=== PATIENT | male | born 1950 | race Caucasian/White ===

== ENCOUNTER 2018-02-04 15:03 | Emergency (ER) | payer OTHER ==
[~2018-02-04] VITALS: Ht 188 cm; Wt 86.6 kg
[~2018-02-04 15:03] MED LIST: ACYCLOVIR 400400 MG PO; ALLOPURINOL 30300 M2 PO; AMBIEN 5 MG TABL5 M1 PO; ASPIR 8181 MG PO; ATIVAN1 M1 PO; CELEXA20 MG PO; CENTRUM SILVER1 EAC4 PO; CHEMOTHERAPY; FISH OIL 1,2001 EAC3 PO; GLIPIZIDE ER10 MG PO; GLUCOPHAGE1000 MG PO; GLUCOSAMINE HC500 MG PO; HUMALOG MI100 UNIT/6 SQ; IMODIUM MULTI-1 EACH PO; INVOKANA100 MG PO; KEPPRA 500 MG500 M1 PO; LEVEMIR SUBQ; MAGOX 400400 MG PO; METFORMIN HCL500 MG PO; MIDODRINE HCL 55 M1 PO; MIRALAX17 GM PO; NORCO 5-325 TA1 EACH; NORCO 5-325 TA1 EACH PO; NOVOLOG MI100 UNIT/2 SUBQ; NOVOLOG100 UNIT/1 SQ; NOVOLOG100 UNIT/1 SUBQ; OMEPRAZOLE40 MG PO; ONDANSETRON HCL4 M2 PO; OSTERA TABLET1 EAC1 PO; OXYCODONE HCL 55 MG PO; OXYCONTIN10 M1 PO; PANTOPRAZOLE SO40 M1 PO; PENTAMIDINE 30300 MG IH; PERCOCET 5-3251 EACH PO; PERCOCET 7.5-31 EACH PO; PERCOCET PO; PREDNISONE 20 M20 MG PO; PREDNISONE50 MG PO; PROMACTA75 MG PO; RENVELA800 MG PO; ROXICODONE15 MG PO; STOOL SOFTENER100 MG PO; TESSALON PERLE100 MG PO; TRAZODONE 150150 M1 PO; TRIPHROCAPS SOFT1 MG PO; VITAMIN D 5050000 I1 PO; VITAMIN D1000 UNI1 PO; XANAX 0.5 MG0.5 M1 PO; XARELTO10 MG PO; ZANTAC 150MG T150 M1 PO; ZANTAC 150MG T150 MG PO; ZOFRAN8 MG PO; ZOLPIDEM TARTRA10 MG PO; [UNRECOGNIZED DRUG - REMARK]
[2018-02-04 15:13] VITALS: BP 140/79
[2018-02-04] MEDS ORDERED: KEFLEX500 M1 PO (16:19)
[2018-02-04] MEDS ORDERED: TRAMADOL 50 MG50 MG PO (16:31)
[2018-02-04] MEDS ORDERED: HYDROCODONE-AP1 EAC6 PO (16:32)
== END 2018-02-04 16:55 | disposition home or self-care (01) ==
LOC: M.ERS 15:03
DX: S51.012A Laceration without foreign body of left elbow, initial encounter (principal); I50.9 Heart failure, unspecified; E11.22 Type 2 diabetes mellitus with diabetic chronic kidney disease; N18.6 End stage renal disease; Z99.2 Dependence on renal dialysis; Z90.49 Acquired absence of other specified parts of digestive tract; Z90.89 Acquired absence of other organs; Z88.8 Allergy status to other drugs, medicaments and biological substances; W01.198A Fall on same level from slipping, tripping and stumbling with subsequent striking against other object, initial encounter; Y93.89 Activity, other specified; Y92.89 Other specified places as the place of occurrence of the external cause; Y99.8 Other external cause status

== ENCOUNTER 2018-04-28 11:53 | Inpatient (IN) | payer OTHER ==
[~2018-04-28] VITALS: Ht 188 cm; Wt 84.8 kg
[~2018-04-28 11:53] MED LIST changes: +HYDROCODONE-AP1 EAC6 PO; +KEFLEX500 M1 PO; +TRAMADOL 50 MG50 MG PO
[2018-04-28 11:55] VITALS: BP 164/100
[2018-04-28] MEDS ORDERED: ASPIR 8181 MG PO (12:01)
[2018-04-28] MEDS ORDERED: VITAMIN D3400 UNIT PO (12:01)
[2018-04-28] MEDS ORDERED: RENVELA800 MG PO (12:01)
[2018-04-28] MEDS ORDERED: MAGOX 400400 MG PO (12:01)
[2018-04-28] MEDS ORDERED: MIDODRINE HCL 55 M1 PO (12:01)
[2018-04-28] MEDS ORDERED: TRIPHROCAPS SOFT1 MG PO (12:01)
[2018-04-28 12:27] LABS: ABSOLUTE EOSINOPHILS 0.1 thou/uL (0.0-0.7); ABSOLUTE LYMPHOCYTES 0.7 thou/uL (0.8-5.3); ABSOLUTE MONOCYTES 0.3 thou/uL (0.0-1.2); ABSOLUTE NEUTROPHILS 2.9 thou/uL (1.6-8.1); EOSINOPHILS 1.2 %; HEMATOCRIT 31.6 % (42.0-52.0); HEMOGLOBIN 10.8 gm/dL (14.0-18.0); LYMPHOCYTES 18.3 %; MCH 34.8 pg (26.0-34.0); MCV 102.2 fL (80.0-100.0); MONOCYTES 7.5 %; MPV 7.6 fl. (7.2-11.1); NUCLEATED RBCS 0 /100WBC; PLATELET COUNT* 94 thou/uL (150-400); RBC 3.09 mil/uL (4.50-6.00); RDW-CV 14.8 % (10.5-14.5); WBC 4.1 thou/uL (4.0-11.0)
[2018-04-28 12:36] LABS: ANION GAP 12 mmol/L (7-16); BUN 56 mg/dL (7-18); CALCIUM 8.6 mg/dL (8.5-10.1); CHLORIDE 101 mmol/L (98-107); CO2 25 mmol/L (21-32); GLUCOSE 102 mg/dL (70-99); POTASSIUM 4.5 mmol/L (3.5-5.1); SODIUM 138 mmol/L (136-145)
[2018-04-28 12:37] LABS: APTT 27.9 Seconds (25.0-31.3)
[2018-04-28 12:56] LABS: ALBUMIN 3.3 g/dL (3.4-5.0); ALKALINE PHOSPHATASE 78 U/L (46-116); CK-MB MASS 2.2 ng/mL (<0.5-3.6); NT-PRO BRAIN NAT PEPTIDE 11718 pg/mL (<300); SGOT 19 U/L (15-37); SGPT 12 U/L (30-65); TOTAL BILIRUBIN 0.7 mg/dL (<0.1-1.0); TOTAL PROTEIN 6.7 g/dL (6.4-8.2); TROPONIN-I LEVEL <0.06 ng/mL (<0.06)
[2018-04-28 14:10] VITALS: BP 126/56
[2018-04-28 14:52] VITALS: BP 149/82
--- NOTE | 2018-04-28 16:13 | EKG ---
[place] [address] ELECTROCARDIOGRAM REPORT Name: ABBY LEMONS Room: [address] IN .R.#: [id number] Admission: 04/28/18 Attend Phys: Vishal Farr MD Discharge: Date of : 46 Report #: [id number] THIS REPORT FOR: //name// [facility] ED Test Date: 2018-04-28 Test Time: 12:30:54 Pat Name: ABBY LEMONS Department: Room: Gender: Internist: : 1950 Requested By: Meño Gracia Order Number: [id number] MD: Lul Combs Measurements Intervals [place] Rate: 99 P: 54 TN: 209 QRS: -59 QRSD: 106 T: 23 QT: 377 QTc: 484 Interpretive Statements Sinus rhythm Borderline prolonged TN interval Incomplete RBBB and LAFB Consider right ventricular hypertrophy Borderline prolonged QT interval Compared to ECG 09/02/2017 16:05:32 No significant changes Electronically Signed On 04-28-2018 16:12:57 CDT by Lul Combs [email or web address] <ELECTRONICALLY SIGNED> By: Lul Combs MD, FAC 04/28/18 1612 1230 1230 Lul Combs MD, [facility] /EPI
[2018-04-28 20:00] VITALS: BP 149/82
[2018-04-28 21:53] LABS: URINE BILIRUBIN NEGATIVE (Negative); URINE BLOOD 1+ (Negative); URINE CLARITY CLEAR; URINE COLOR STRAW; URINE GLUCOSE-RANDOM 1+ (Negative); URINE KETONES NEGATIVE (Negative); URINE LEUKOCYTES-REFLEX NEGATIVE (Negative); URINE NITRITE-REFLEX NEGATIVE (Negative); URINE PROTEIN 1+ (Negative); URINE UROBILINOGEN 0.2 E.U./dl (0.2-1.0)
[2018-04-28 22:25] LABS: BACTERIA-REFLEX None Seen /HPF (None Seen); CASTS None Seen /LPF (None Seen); CRYSTALS None Seen /LPF (None Seen); SQUAMOUS NONE SEEN /LPF (0-3); URINE RBC 3-10 Few /HPF (0-2); URINE WBC-REFLEX None Seen /HPF (0-5)
[2018-04-29] VITALS: BP 98/62
[2018-04-29 04:00] VITALS: BP 166/85
[2018-04-29 05:25] LABS: ABSOLUTE EOSINOPHILS 0.1 thou/uL (0.0-0.7); ABSOLUTE LYMPHOCYTES 1.1 thou/uL (0.8-5.3); ABSOLUTE MONOCYTES 0.5 thou/uL (0.0-1.2); ABSOLUTE NEUTROPHILS 3.7 thou/uL (1.6-8.1); BASOPHILS 0.7 %; EOSINOPHILS 1.1 %; HEMATOCRIT 31.3 % (42.0-52.0); HEMOGLOBIN 10.6 gm/dL (14.0-18.0); LYMPHOCYTES 19.9 %; MCH 34.8 pg (26.0-34.0); MCHC 33.7 g/dL (28.0-37.0); MCV 103.1 fL (80.0-100.0); MONOCYTES 8.6 %; MPV 8.2 fl. (7.2-11.1); NUCLEATED RBCS 0 /100WBC; PLATELET COUNT* 105 thou/uL (150-400); POLYS 69.7 %; RBC 3.04 mil/uL (4.50-6.00); RDW-CV 14.7 % (10.5-14.5); WBC 5.3 thou/uL (4.0-11.0)
[2018-04-29 05:40] LABS: CALCIUM 8.3 mg/dL (8.5-10.1)
[2018-04-29 05:41] LABS: POTASSIUM 5.8 mmol/L (3.5-5.1)
[2018-04-29 05:42] LABS: CREATININE 9.6 mg/dL (0.6-1.3)
[2018-04-29 08:00] VITALS: BP 123/63
[2018-04-29 16:00] VITALS: BP 135/81
[2018-04-29 20:00] VITALS: BP 121/63
[2018-04-30] VITALS: BP 107/56
[2018-04-30 04:00] VITALS: BP 98/52
[2018-04-30 05:49] LABS: CALCIUM 8.3 mg/dL (8.5-10.1); MAGNESIUM 2.4 mg/dL (1.8-2.4); PHOSPHORUS* 6.1 mg/dL (2.5-4.9); POTASSIUM 4.3 mmol/L (3.5-5.1)
[2018-04-30 05:54] LABS: CREATININE 7.1 mg/dL (0.6-1.3)
[2018-04-30 08:00] VITALS: BP 121/63
[2018-04-30 12:00] VITALS: BP 114/55
[2018-04-30 15:56] VITALS: BP 114/55
[2018-04-30 19:30] VITALS: BP 112/74
[2018-05-01] VITALS (7 sets, daily range): BP systolic 74–135; BP diastolic 50–77
--- NOTE | 2018-05-01 09:12 | CON ---
[address] [address] CONSULTATION Name: ABBY LEMONS Room: [address] IN M.R.#: [id number] Admission: 04/28/18 Attend Phys: Vishal Farr MD Discharge: Date of : 46 Report #: [id number] THIS REPORT FOR: //name// CC: [facility] DATE OF SERVICE: 04/29/2018 NEPHROLOGY CONSULTATION CONSULTING PHYSICIAN: Dr. Farr. REASON FOR NEPHROLOGY CONSULTATION: End-stage renal disease, on hemodialysis for hemodialysis needs. REASON FOR ADMISSION: Confusion while he was on dialysis. HISTORY OF PRESENT ILLNESS: This is a very pleasant 67-year-old male who has been on hemodialysis for the last 4 years, has end-stage renal disease, goes to [facility] under the care of Dr. Santos every Saturday, Saturday and Saturday, who was sent over from dialysis unit yesterday because the patient apparently had some confusion while on dialysis. Head CT was done here at [facility] and did not show any acute stroke, but Neurology has been consulted and they would like to do a neuropsychological testing as an outpatient to rule out any dementia and the patient is also supposed to get an MRI. Currently, the patient is not confused and I saw him on dialysis. Apparently, we got some history from the dialysis unit that the patient has been having this confusion-like symptoms and not feeling well and having some nausea and vomiting on dialysis, intermittently just recently and plan was to switch his dialyzer, so we did switch his dialyzer from his F160 regular dialyzer to Rg dialyzer today and he has been doing well so far. He got only 1 hour of dialysis yesterday and his potassium was 5.8, hence he is being dialyzed today. REVIEW OF SYSTEMS: As mentioned above, he was having some confusion while on dialysis, which has now resolved and other review of systems were done and they were negative. ALLERGIES: EPINEPHRINE AND PREDNISONE. HOME MEDICATIONS: Include aspirin, magnesium oxide, midodrine, sevelamer, folic acid, cholecalciferol. PAST MEDICAL AND SURGICAL HISTORY: Includes dialysis shunt in his right arm, he has AV fistula, history of lymphoma and bone marrow transplant, history of left leg hardware, history of congestive heart failure, history of diabetes type 2, appendectomy, adenoid surgery, tonsillectomy, shingles, end-stage renal disease, [place] [address] CONSULTATION Name: ABBY LEMONS Carissa Room: [address]#: [id number] Admission: 04/28/18 Attend Phys: Vishal Farr MD Discharge: Date of : 46 Report #: [id number] on hemodialysis every Saturday, Saturday and Saturday at [facility] and cervical spinal stenosis. FAMILY HISTORY: Noncontributory. SOCIAL HISTORY: Lives at home with his . Does not use drugs or use tobacco. Does not use alcohol. PHYSICAL EXAMINATION: VITAL SIGNS: Blood pressure is 166/85, respiratory rate is 20, pulse rate is , temperature is 37 and pulse ox is 99% on no oxygen. GENERAL: The patient was seen on dialysis. He was comfortable, oriented x 3. HEAD, EYES, EARS, NOSE AND THROAT: Mucous membranes are moist. NECK: No JVD. CHEST: Bilaterally clear to auscultation. No crackles or wheezing. CARDIOVASCULAR: S1, S2 normal, and no murmurs heard. ABDOMEN: Soft, nondistended, nontender. Bowel sounds were present. EXTREMITIES: There was no lower extremity edema, symmetrical extremities. NEUROLOGICAL FUNCTION: Gross neurological function seems to be intact. PSYCHIATRIC: Mood seemed to be normal and he had a normal affect and he was also very pleasant. LABORATORY DATA: From this morning, hemoglobin was 10.6, WBC was 5.3, platelet count is 105. Sodium was 139, potassium was 5.8, chloride was 104, CO2 was 25, BUN was 70 and other labs were reviewed. IMAGING: Head CT, chest x-ray, abdominal and pelvic CT were reviewed. ASSESSMENT AND PLAN: 1. End-stage renal disease, on hemodialysis every Saturday, Saturday and Saturday: The patient had only 1 hour dialysis yesterday and his potassium was 5.8 today, hence, the patient is being dialyzed for about 3 hours today. We will use a 2 K bath to help with his potassium. The patient will be dialyzed again tomorrow as per his regular schedule for 4 hours. We have changed his dialyzer to Rg dialysis filter and the patient has been doing well on that so far. There was some history that patient was feeling sick with some nausea and vomiting with F160 dialyzer at his regular outpatient unit, so we may have to switch dialyzer a day or two on a chronic basis. He is currently looking euvolemic. He has a functioning AV fistula. 2. Anemia of chronic kidney disease: The patient gets Mircera as an outpatient. Currently, there is no need. His hemoglobin is at goal 10.6. 3. Confusion while on dialysis. Agree with neuropsychological testing to rule out dementia as an outpatient. The patient is also supposed to get an MRI of his head as per Neurology. Neurology is closely following him. 4. History of hypomagnesemia: He is on magnesium supplements. We will check [place] [address] CONSULTATION Name: VEENA LEMONSNELDA Ferrer Room: [address] IN [facility].#: [id number] Admission: 04/28/18 Attend Phys: Vishal Farr MD Discharge: Date of : 46 Report #: [id number] 5. Secondary hyperparathyroidism and hyperphosphatemia: He is on binders and we will check his phosphorus level tomorrow. Thank you for this consultation. We will continue to follow along with you. Plan was discussed with the patient and dialysis nurse. <ELECTRONICALLY SIGNED> By: Venita Vines MD 05/01/18 0912 1022 [id number] Vines MD /nt
--- NOTE | 2018-05-01 10:24 | EKG ---
[place] [address] ELECTROCARDIOGRAM REPORT Name: ABBY LEMONS Room: [address] ADM IN M.R.#: [id number] Admission: 04/28/18 Attend Phys: Vishal Farr MD Discharge: Date of : 46 Report #: [id number] THIS REPORT FOR: //name// [facility] Test Date: 2018-04-30 Test Time: 17:13:45 Pat Name: ABBY LEMONS Department: Room: [address] Gender: M Circus Performer: : 1950 Requested By: Vishal Farr Order Number: [id number] Reading MD: Rufus Spence Measurements Intervals [place] Rate: 75 P: 50 WI: 221 QRS: -58 QRSD: 106 T: 27 QT: 441 QTc: 493 Interpretive Statements Sinus rhythm Ventricular premature complex Prolonged WI interval Probable left atrial enlargement Incomplete RBBB and LAFB RSR' in V1 or V2, right VCD or RVH Borderline prolonged QT interval Compared to ECG 04/28/2018 12:30:54 Ventricular premature complex(es) now present RSR' in V1 or V2 now present Electronically Signed On 05-01-2018 10:24:18 CDT by Rufus Spence [email or web address] <ELECTRONICALLY SIGNED> By: Rufus Spence MD, [facility] 05/01/18 1024 1713 1713 Rufus Spence MD, [facility] /EPI
[2018-05-02 04:00] VITALS: BP 148/63
[2018-05-02 04:01] VITALS: BP 127/63
[2018-05-02 04:02] VITALS: BP 100/49
[2018-05-02] MEDS ORDERED: LAMICTAL100 MG PO (12:03)
[2018-05-02 12:27] VITALS: BP 114/55
--- NOTE | 2018-05-05 09:40 | CON ---
[address] [address] CONSULTATION Name: ABBY LEMONS Room: [address] IN .Gold.#: [id number] Admission: 04/28/18 Attend Phys: Vishal Farr MD Discharge: 05/02/18 Date of : 46 Report #: [id number] THIS REPORT FOR: //name// [facility] DATE OF SERVICE: 04/28/2018 HISTORY OF PRESENT ILLNESS: This is a 67-year-old male patient who was evaluated by me for altered mental status. He does not think he has any altered mental status. This happened when he was on dialysis. I reviewed his records. This patient was seen by Dr. Henry in August 2017 with virtually identical symptoms. I saw him in February 2017 with another neurological workup at that time. An MRI of the brain was done at that time and did not show any acute changes. His confusion is moderately severe and Dr. Henry had thought that he may have had some dementia. It came spontaneously without trauma and he does not know anything which is aggravating or relieving it. REVIEW OF SYSTEMS: Pretty extensive in this patient. This patient has end-stage renal disease. He has been admitted here multiple times. He has a prior history of congestive heart failure, confusion, renal failure, chest pain, hyperglycemia, but he says he does not take any medications for that. Lower extremity weakness. He also had weakness of the lower extremity, he has a history of diabetes, but he does not do anything about that. He had an adenoid and tonsil removal. He had shingles in the past. He had a history of cervical spinal stenosis. I carried out the 14-point review of system and this was his relevant 14-point review of system. PAST MEDICAL HISTORY: Positive for being on dialysis. FAMILY HISTORY: Negative for early age stroke. SOCIAL HISTORY: He says he does not drink any alcohol or smoke. PHYSICAL EXAMINATION: The patient's examination indicate this patient is alert, responsive, able to follow simple and complex command, but he says it is 2015. He knows what hospital he is in, but his memory and fund of knowledge is poor. His cranial nerve examination 2-12 mostly looks unremarkable. He moves all 4 extremities. I think his position sense is present. His reflexes are absent on both sides. There is no meningeal sign. There is no cerebellar sign. I could not look at the patient's fundus. Pulses are difficult to feel. He has no edema, cyanosis or jaundice. He is a well-developed individual. He does not have any dysmorphic features of eyes, ears and face. His vision and hearing are believed is adequate. His cardiac examination is unremarkable. No respiratory difficulty or rhonchi was noticed on either side. His blood pressure is 149/82, respirations 16, pulse is 78, temperature is 98.5. [place] [address] CONSULTATION Name: ABBY LEMONS Room: [address]#: [id number] Admission: 04/28/18 Attend Phys: Vishal Farr MD Discharge: 05/02/18 Date of : 46 Report #: [id number] LABORATORY DATA: White count is 4.1. He did have a CT scan of the head, which showed extensive atrophy, but it is unchanged since the last time. IMPRESSION: I agree with Dr. Henry is possible that this patient is developing some dementia, but he intermittently decompensate. He has been admitted like this multiple times. It is unlikely that we will find any treatable pathology, but I will go ahead and send the request to do workup for his altered mental status. He is already on aspirin. RECOMMENDATIONS: 1. EEG. 2. We will repeat the MRI. 3. Mainly observe him to see if he becomes better because previously he has become better from these spells. 4. As an outpatient regarding neuropsychological testing done to evaluate the patient for dementia. <ELECTRONICALLY SIGNED> By: Clark Elena MD 05/05/18 0940 1523 Elin Elena MD /olga
--- NOTE | 2018-05-05 09:40 | EEG ---
[address] [address] EEG STUDY REPORT Name: ABBY LEMONS Room: [address] IN .R.#: [id number] Admission: 04/28/18 Attend Phys: Vishal Farr MD Discharge: 05/02/18 Date of : 46 Report #: [id number] THIS REPORT FOR: //name// [facility]: [facility] DATE OF SERVICE: 05/01/2018 This patient is being evaluated for altered mental status. EEG was done by placing the electrodes by standard 10-20 system of electrode placement. Both referential and sequential montages were used for recording. Background activity in this patient's EEG is about 8 Hz and 30 microvolts. It is a symmetrical activity. The patient went to sleep that is associated with bilaterally symmetrical sleep spindle and vertex sharp waves. Photic stimulation is unremarkable. Throughout the record, no active epileptiform activity was noticed. IMPRESSION: Moderately abnormal EEG because it is intermixed with theta range slowing on both sides. That is a nonspecific abnormality, which can occur with encephalopathy, effect of psychotropic medication, dementia, etc. Clinical correlation is recommended. <ELECTRONICALLY SIGNED> By: Clark Elena MD 05/05/18 0940 1937 44Clark Elena MD /nt
== END 2018-05-02 14:30 | disposition home or self-care (01) | DRG 70 ==
LOC: M.ERS 11:53 → M.TBA-ER 13:36 → M.2W 13:36
PROVIDERS: Emergency Medicine Emergency Medical Services; Internal Medicine; ADMIT Internal Medicine
PROC: 5A1D70Z Performance of Urinary Filtration, Intermittent, Less than 6 Hours Per Day (ICD-10-PCS; principal; 2018-05-02)
DX: G93.40 Encephalopathy, unspecified (principal); N18.6 End stage renal disease; I13.2 Hypertensive heart and chronic kidney disease with heart failure and with stage 5 chronic kidney disease, or end stage renal disease; N17.9 Acute kidney failure, unspecified; Z94.81 Bone marrow transplant status; N25.81 Secondary hyperparathyroidism of renal origin; D63.1 Anemia in chronic kidney disease; E83.39 Other disorders of phosphorus metabolism; M19.90 Unspecified osteoarthritis, unspecified site; I50.9 Heart failure, unspecified; E11.22 Type 2 diabetes mellitus with diabetic chronic kidney disease; F03.90 Unspecified dementia, unspecified severity, without behavioral disturbance, psychotic disturbance, mood disturbance, and anxiety; Z99.2 Dependence on renal dialysis; Z86.73 Personal history of transient ischemic attack (TIA), and cerebral infarction without residual deficits; Z85.72 Personal history of non-Hodgkin lymphomas; Z90.49 Acquired absence of other specified parts of digestive tract; Z79.82 Long term (current) use of aspirin; Z79.899 Other long term (current) drug therapy

== ENCOUNTER 2018-07-05 23:47 | Inpatient (IN) | payer OTHER ==
[~2018-07-05] VITALS: Ht 188 cm; Wt 79.8 kg
--- NOTE | ~2018-07-05 | CON ---
[address] [address] CONSULTATION Name: ABBY LEMONS Room: [address] IN M.R.#: [id number] Admission: 07/06/18 Attend Phys: Milton Marshall, Discharge: Date of : 46 Report #: [id number] THIS REPORT FOR: //name// CC: Ab Marshall REASON FOR CONSULTATION: End-stage renal disease. HISTORY OF PRESENT ILLNESS: The patient is a 67-year-old male with history of end-stage renal disease, on hemodialysis on Saturday, Saturday, Saturday schedule for the last 4 years, goes to [facility] under the care of Dr. Santos, admitted after he called EMS with complications related to fall. Apparently, the patient fell secondary to tripping over a rug. On the initial EMS evaluation, the patient refused to be transferred to the Emergency Room, but called back EMS about 40 minutes later because of intractable left knee pain. The patient was not doing great at the time and transferred to the ED. We were consulted to assist with management of his ESRD. The patient unclear when he had his last dialysis done. It appears that he may have missed maybe one dialysis treatment on Saturday. PAST MEDICAL HISTORY: Pertinent for congestive heart failure, altered mental status, chest pain, end-stage renal disease, on hemodialysis; fall, hyperglycemia, left elbow pain, seizure, shingles, skin tear, urinary tract infections. ALLERGIES: THE PATIENT IS ALLERGIC TO EPINEPHRINE AND PREDNISONE. PHYSICAL EXAMINATION: GENERAL: He does not appear to be in any respiratory distress. VITAL SIGNS: Blood pressure of 136/67, pulse rate of 99, respiratory rate of 20, temperature of 37.7, oxygen saturation is 99% on room air. HEENT: [place] conjunctivae, anicteric sclerae. Normocephalic, atraumatic head. NECK: No JVD. Trachea midline. LUNGS: Clear bilaterally. No wheezing. CARDIOVASCULAR: Showed tachycardia. Normal S1 and S2. No murmur, gallop or rubs. ABDOMEN: Soft, nontender with positive bowel sounds. EXTREMITIES: Showed no edema. He has left upper extremity AV fistula in place. Positive thrill. REVIEW OF SYSTEMS: Twelve-point review of systems was done and pertinent positives are mentioned in the history of present illness. IMPRESSION: 1. End-stage renal disease, on hemodialysis on Saturday, Saturday, Saturday schedule at [facility]. 2. Left upper extremity [place] [address] CONSULTATION Name: VEENA LEMONSNELDA Ferrer Room: [address]#: [id number] Admission: 07/06/18 Attend Phys: Milton Marshall, Discharge: Date of : 46 Report #: [id number] 3. Toxic/metabolic encephalopathy. 4. Urinary tract infection with hematuria. 5. Dementia with behavior disturbance. 6. Status post fall. 7. Essential hypertension. 8. Seizure disorder. 9. Cervical stenosis. 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 11. Anemia of end-stage renal disease. IMAGING STUDIES: Included CT of his head, which was negative for acute changes and x-ray of his knees with no definite acute bony abnormality. PLAN: Hemodialysis arrangement will be made for tomorrow. No need for dialysis at present. Antibiotics for his urinary tract infection. Follow up on urine cultures. We will continue to monitor along with you. By: 1143 [id number] Teague MD /nt
[~2018-07-05 23:47] MED LIST changes: +LAMICTAL100 MG PO; +VITAMIN D3400 UNIT PO
[2018-07-05 23:49] VITALS: BP 134/76
[2018-07-06] VITALS (7 sets, daily range): BP systolic 93–151; BP diastolic 47–79
[2018-07-06 00:11] LABS: ABSOLUTE BASOPHILS 0.1 thou/uL (0.0-0.2); ABSOLUTE MONOCYTES 0.8 thou/uL (0.0-1.2); ABSOLUTE NEUTROPHILS 8.1 thou/uL (1.6-8.1); BASOPHILS 0.6 %; EOSINOPHILS 0.2 %; HEMATOCRIT 34.5 % (42.0-52.0); HEMOGLOBIN 11.7 gm/dL (14.0-18.0); LYMPHOCYTES 10.1 %; MCH 35.3 pg (26.0-34.0); MCHC 33.9 g/dL (28.0-37.0); MCV 104.1 fL (80.0-100.0); MONOCYTES 7.8 %; MPV 7.5 fl. (7.2-11.1); NUCLEATED RBCS 0 /100WBC; PLATELET COUNT* 88 thou/uL (150-400); POLYS 81.3 %; RBC 3.32 mil/uL (4.50-6.00); RDW-CV 15.5 % (10.5-14.5)
[2018-07-06 00:19] LABS: CALCIUM 8.5 mg/dL (8.5-10.1); CREATININE 7.7 mg/dL (0.6-1.3); POTASSIUM 4.1 mmol/L (3.5-5.1)
[2018-07-06 00:23] LABS: ALBUMIN 3.6 g/dL (3.4-5.0); TOTAL BILIRUBIN 1.7 mg/dL (<0.1-1.0); TOTAL PROTEIN 6.8 g/dL (6.4-8.2)
[2018-07-06 01:59] LABS: URINE BILIRUBIN NEGATIVE (Negative); URINE BLOOD 3+ (Negative); URINE CLARITY CLEAR; URINE COLOR STRAW; URINE GLUCOSE-RANDOM 1+ (Negative); URINE KETONES 1+ (Negative); URINE NITRITE-REFLEX NEGATIVE (Negative); URINE PROTEIN 3+ (Negative); URINE SPECIFIC GRAVITY 1.015 (1.005-1.030); URINE UROBILINOGEN 0.2 E.U./dl (0.2-1.0)
[2018-07-06 02:00] LABS: URINE LEUKOCYTES-REFLEX 3+ (Negative)
[2018-07-06 02:03] LABS: BACTERIA-REFLEX >30 Many /HPF (None Seen); CASTS None Seen /LPF (None Seen); CRYSTALS None Seen /LPF (None Seen); MUCUS 0-3 Light strn/LPF (None Seen); SQUAMOUS 0-3 Few /LPF (0-3); TRANSITIONAL EPITHEL CELL 0-3 Few /LPF (None Seen); URINE RBC >20 Many /HPF (0-2); URINE WBC-REFLEX >25 Many /HPF (0-5); WBC CLUMPS Many (None Seen)
[2018-07-07 08:13] LABS: HEMATOCRIT 32.8 % (42.0-52.0); HEMOGLOBIN 10.9 gm/dL (14.0-18.0); MCH 35.1 pg (26.0-34.0); MCHC 33.4 g/dL (28.0-37.0); MCV 105.2 fL (80.0-100.0); RBC 3.12 mil/uL (4.50-6.00); RDW-CV 15.2 % (10.5-14.5); WBC 5.8 thou/uL (4.0-11.0)
[2018-07-07 08:30] LABS: CALCIUM 8.6 mg/dL (8.5-10.1); MAGNESIUM 2.5 mg/dL (1.8-2.4); POTASSIUM 4.3 mmol/L (3.5-5.1)
[2018-07-07 08:44] LABS: CREATININE 9.6 mg/dL (0.6-1.3)
[2018-07-07 19:45] VITALS: BP 141/73
[2018-07-08 07:55] VITALS: BP 117/52
[2018-07-08 10:10] LABS: HEPATITIS B SURFACE AG Negative (Negative)
[2018-07-08 16:13] VITALS: BP 113/57
[2018-07-08 21:25] VITALS: BP 134/56
[2018-07-09 07:55] VITALS: BP 131/65
[2018-07-09 08:30] LABS: ALBUMIN 3.1 g/dL (3.4-5.0); CALCIUM 8.5 mg/dL (8.5-10.1); POTASSIUM 4.7 mmol/L (3.5-5.1); TOTAL BILIRUBIN 0.9 mg/dL (<0.1-1.0); TOTAL PROTEIN 6.2 g/dL (6.4-8.2)
[2018-07-09 08:31] LABS: ABSOLUTE BASOPHILS 0.1 thou/uL (0.0-0.2); ABSOLUTE EOSINOPHILS 0.1 thou/uL (0.0-0.7); ABSOLUTE LYMPHOCYTES 0.9 thou/uL (0.8-5.3); ABSOLUTE MONOCYTES 0.4 thou/uL (0.0-1.2); ABSOLUTE NEUTROPHILS 2.7 thou/uL (1.6-8.1); BASOPHILS 1.3 %; EOSINOPHILS 2.6 %; HEMATOCRIT 32.9 % (42.0-52.0); HEMOGLOBIN 10.9 gm/dL (14.0-18.0); LYMPHOCYTES 20.8 %; MCH 34.8 pg (26.0-34.0); MCHC 33.1 g/dL (28.0-37.0); MCV 104.9 fL (80.0-100.0); MPV 8.5 fl. (7.2-11.1); NUCLEATED RBCS 0 /100WBC; PLATELET COUNT* 90 thou/uL (150-400); POLYS 65.3 %; RBC 3.14 mil/uL (4.50-6.00); RDW-CV 14.9 % (10.5-14.5); WBC 4.1 thou/uL (4.0-11.0)
[2018-07-09 08:36] LABS: CREATININE 7.1 mg/dL (0.6-1.3)
[2018-07-09 16:00] VITALS: BP 126/64
[2018-07-09 21:25] VITALS: BP 134/63
[2018-07-10 04:25] LABS: ABSOLUTE EOSINOPHILS 0.1 thou/uL (0.0-0.7); ABSOLUTE LYMPHOCYTES 1.1 thou/uL (0.8-5.3); ABSOLUTE MONOCYTES 0.6 thou/uL (0.0-1.2); EOSINOPHILS 1.5 %; HEMATOCRIT 33.1 % (42.0-52.0); HEMOGLOBIN 11.2 gm/dL (14.0-18.0); LYMPHOCYTES 22.9 %; MCH 35.1 pg (26.0-34.0); MCHC 33.9 g/dL (28.0-37.0); MCV 103.7 fL (80.0-100.0); MONOCYTES 12.5 %; MPV 8.2 fl. (7.2-11.1); NUCLEATED RBCS 0 /100WBC; PLATELET COUNT* 89 thou/uL (150-400); POLYS 62.1 %; RBC 3.19 mil/uL (4.50-6.00); RDW-CV 14.8 % (10.5-14.5); WBC 4.8 thou/uL (4.0-11.0)
[2018-07-10 04:39] LABS: POTASSIUM 4.7 mmol/L (3.5-5.1)
[2018-07-10 04:40] LABS: CREATININE 4.7 mg/dL (0.6-1.3)
[2018-07-10 12:22] VITALS: BP 122/57
[2018-07-10 16:08] VITALS: BP 129/62
[2018-07-10 19:45] VITALS: BP 128/75
[2018-07-11 08:00] VITALS: BP 137/73
[2018-07-11 09:45] LABS: CALCIUM 8.7 mg/dL (8.5-10.1); POTASSIUM 5.3 mmol/L (3.5-5.1)
[2018-07-11 09:47] LABS: CREATININE 6.5 mg/dL (0.6-1.3)
[2018-07-11 16:36] VITALS: BP 132/67
[2018-07-11 20:00] VITALS: BP 152/66
[2018-07-12 04:57] LABS: HEMATOCRIT 32.5 % (42.0-52.0); HEMOGLOBIN 11.1 gm/dL (14.0-18.0); MCH 35.2 pg (26.0-34.0); MCV 103.4 fL (80.0-100.0); MPV 8.4 fl. (7.2-11.1); RBC 3.14 mil/uL (4.50-6.00); RDW-CV 14.5 % (10.5-14.5); WBC 5.2 thou/uL (4.0-11.0)
[2018-07-12 05:20] LABS: ALBUMIN 3.1 g/dL (3.4-5.0); CALCIUM 8.8 mg/dL (8.5-10.1); PHOSPHORUS* 4.7 mg/dL (2.5-4.9); POTASSIUM 4.7 mmol/L (3.5-5.1)
[2018-07-12 07:50] VITALS: BP 129/69
[2018-07-12 16:30] VITALS: BP 133/68
[2018-07-12 19:50] VITALS: BP 126/63
[2018-07-13] VITALS: BP 114/39
[2018-07-13 04:00] VITALS: BP 100/65
[2018-07-13 07:45] VITALS: BP 132/66
--- NOTE | 2018-07-13 07:53 | OP ---
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 OPERATION: Open revision of his left upper extremity fistula with aneurysmorrhaphy. SURGEON: Fei Dyer DO. RN CLINICAL QUALITY: None. ANESTHESIA: LMA. ESTIMATED BLOOD LOSS: 150 mL. FLUIDS: See Anesthesia report. URINE OUTPUT: None. SPECIMENS: None. COMPLICATIONS: None. FINDINGS: He had an area of skin erosion overlying pseudoaneurysm of his left upper extremity arteriovenous fistula. This had hemorrhaged on dialysis necessitating emergent intervention. After fistula revision he had a good thrill within the fistula. CLINICAL HISTORY: The patient is a 67-year-old man with end-stage renal disease, currently dialyzing through a left upper extremity arteriovenous fistula. He underwent a fistulogram yesterday with angioplasty of venous outflow. He had area of skin erosion of the fistula that hemorrhaged following dialysis today and has needed revision for hemorrhage control. DESCRIPTION OF PROCEDURE: After informed consent was obtained, the patient was taken to the operating room and placed on the OR bed in sup[place]. [place] [address] OPERATIVE REPORT Name: ABBY LEMONS Room: [address] IN [facility].#: [id number] Admission: 07/06/18 Attend Phys: Milton Marshall, Discharge: Date of : 46 Report #: [id number] administered general anesthesia by the Anesthesia Team. Left upper extremity was prepped and draped in usual sterile fashion. Full timeout was performed identifying correct patient and procedure. A small longitudinal incision was made over the left upper extremity fistula in the area of skin erosion. Dissection was carried down through skin and subcutaneous tissues both sharply and with electrocautery. The fistula was controlled proximally with a profunda clamp. This was controlled with manual pressure. I had administered 5000 units of intravenous heparin. I then dissected the aneurysm sac free from the skin edges, debrided the aneurysm sac down to healthier vein. I then primarily closed the vein with running 6-0 Prolene suture. This did not appear infected. There was no pus or drainage. This was just simply the fistula eroding through the skin. I then excised the skin edges to fresh skin edges. I then irrigated the wound with antibiotic solution. Hemostasis was controlled with electrocautery. Again, when flow was restored in the fistula he had an excellent thrill. Once hemostasis was ensured, I closed the wound in layers with 3-0 Vicryl and 4-0 Monocryl on the skin and did put some local anesthetic in, 5 mL of bupivacaine. The wound was dressed with Dermabond. All sponge, sharp and instrument counts reported correct x 2. He tolerated the procedure well and was transferred to recovery in stable condition. <ELECTRONICALLY SIGNED> By: Fei Dyer DO 07/13/18 0753 1530 1818Aignacio Dyer DO /nt
[2018-07-13 12:01] VITALS: BP 113/64
[2018-07-13 12:52] LABS: CALCIUM 8.4 mg/dL (8.5-10.1); CREATININE 5.7 mg/dL (0.6-1.3); POTASSIUM 4.7 mmol/L (3.5-5.1)
[2018-07-13 15:56] VITALS: BP 148/75
[2018-07-13 19:45] VITALS: BP 152/69
[2018-07-14 00:20] VITALS: BP 134/69
[2018-07-14 07:35] VITALS: BP 143/69
[2018-07-14 16:00] VITALS: BP 102/54
[2018-07-14 19:35] VITALS: BP 140/62
[2018-07-15] VITALS: BP 134/62
[2018-07-15 04:00] VITALS: BP 125/56
[2018-07-15 07:55] VITALS: BP 169/44
[2018-07-15 12:00] VITALS: BP 160/52
[2018-07-15 16:00] VITALS: BP 130/64
[2018-07-16 00:23] VITALS: BP 91/56
[2018-07-16 04:13] VITALS: BP 135/59
[2018-07-16 11:10] VITALS: BP 120/60
[2018-07-16 16:19] VITALS: BP 119/49
[2018-07-16 20:30] VITALS: BP 116/44
[2018-07-17 00:28] VITALS: BP 140/63
[2018-07-17 04:13] VITALS: BP 132/73
[2018-07-17 07:40] VITALS: BP 130/39
[2018-07-17 12:18] VITALS: BP 130/39
--- NOTE | 2018-08-08 16:08 | OP ---
[address] [address] OPERATIVE REPORT Name: VESTAABBY Room: [address]#: [id number] Admission: 07/06/18 Attend Phys: Milton Marshall, Discharge: 07/17/18 Date of : 46 Report #: [id number] THIS REPORT FOR: //name// CC: Ab Marshall DATE OF SERVICE: 07/11/2018 DICTATION NUMBER: [id number]. PREOPERATIVE DIAGNOSIS: Pulsatile left upper extremity AV fistula with recent hemorrhage. POSTOPERATIVE DIAGNOSIS: Pulsatile left upper extremity AV fistula with recent hemorrhage. PROCEDURES: 1. Ultrasound-guided access of left AV fistula. 2. Left upper extremity fistulogram. 3. Central venogram. 4. Drug-coated balloon angioplasty of venous outflow tract stenosis. 5. Percutaneous transluminal angioplasty of venous outflow tract stenosis. 6. Completion fistulogram of left upper extremity. SURGEON: Ab Watters MD. RESIDENT: Kamlesh Rizo. ESTIMATED BLOOD LOSS: Minimal. COMPLICATIONS: None. ANESTHESIA: Sedation and local. FINDINGS: The patient has a widely patent arteriovenous fistula with a widely patent arteriovenous anastomosis. The course of the venous outflow tract takes a 90-degree angle in the upper arm, which likely is causing high venous pressures and outflow issues with recent hemorrhage. He also has two segments of pseudoaneurysm, situ segments of pseudoaneurysm degeneration in the venous outflow portion of his AV fistula from a perpetual access with hemodialysis; however, minimal thrombus is associated with these pseudoaneurysms. No central venous stenosis. Complete resolution of the venous outflow tract stenosis after drug-coated balloon angioplasty and percutaneous transluminal angioplasty. PROCEDURE: The patient is a 67-year-old male with end-stage renal disease who has a left upper extremity arteriovenous fistula which [place] [address] OPERATIVE REPORT Name: ABBY LEMONS Room: [address]#: [id number] Admission: 07/06/18 Attend Phys: Milton Marshall, Discharge: 07/17/18 Date of : 46 Report #: [id number] He had dialysis yesterday. There was concern for possible infection, so a stat consultation was placed. Upon evaluation, he had no leukocytosis. He was afebrile. No cellulitis; however, to confirm that there was no infection, an ultrasound was ordered. On ultrasound, there was no fluid surrounding the arteriovenous fistula. His fistula was very pulsatile, so my concern with recent hemorrhage was that he had an outflow stenosis, so he was taken emergently to the IR suite for an emergent fistulogram. The risks, benefits, alternatives, possible outcomes were extensively discussed. He elected to proceed. Consent was obtained. The site was marked. He was taken to the IR suite and placed on the table in supine position. An appropriate timeout was called, identifying the correct patient, procedure, and procedure site. His left arm was prepped and draped in the usual sterile fashion. Sedation was administered. Local anesthetic was used throughout. Ultrasound guidance was utilized to cannulate the venous outflow tract of the left upper extremity arteriovenous fistula at the level of the antecubital fossa. Image was preserved. A microsheath was placed. Left upper extremity fistulogram was performed with the above listed findings. The fistula was widely patent; however, there were two segments of pseudoaneurysmal degeneration from chronic access in the same site of the fistula. His arteriovenous anastomosis was widely patent. There was a segment of stenosis due to an acute right angle turn of his venous outflow tract. There was no central stenosis appreciated. At this time, I upsized my micro sheath to a 6-Chinese sheath. I was able to traverse the stenosis with a Glidewire. This site was angioplastied with a 6 mm drug-coated balloon, Bard Lutonix. This was inflated for 2 minutes. I then postdilated this with an 8 mm Ultraverse angioplasty balloon. Repeat venography yielded complete resolution of the stenosis. At this time, this concluded the procedure. The sheath was removed as were all wires and catheters. A 4-0 Monocryl suture was placed with return of hemostasis. He tolerated the procedure well. All lap and instrument counts were correct at the end of the case x2. Going forward, I would highly recommend that access sites proximal or distal to the sites of pseudoaneurysmal degeneration be used with hemodialysis. Due to the tortuosity of the venous outflow tract, I suspect that this may need to be intervened on again in the next 2-3 months. I would recommend that he follow up with us in the clinic. Thank you for the consultation and the opportunity to be involved in this patient's plan of care. <ELECTRONICALLY SIGNED> By: Rome Marte DO 08/08/18 1608 1210 [id number] Watters MD /nt
== END 2018-07-17 14:00 | DRG 673 ==
LOC: M.ERS 23:47 → M.TBA-ER 07-06 02:28 → M.ORTHSURG 07-06 02:28 → M.3W 07-12 16:03
PROVIDERS: Emergency Medicine; Internal Medicine; Internal Medicine Nephrology; ADMIT Family Medicine
PROC: 5A1D70Z Performance of Urinary Filtration, Intermittent, Less than 6 Hours Per Day (ICD-10-PCS; principal; 2018-07-09)
PROC: B51W1ZZ Fluoroscopy of Dialysis Shunt/Fistula using Low Osmolar Contrast (ICD-10-PCS; 2018-07-11)
PROC: 057C3ZZ Dilation of Left Basilic Vein, Percutaneous Approach (ICD-10-PCS; 2018-07-11)
PROC: 05BC0ZZ Excision of Left Basilic Vein, Open Approach (ICD-10-PCS; 2018-07-12)
PROC: 5A1D70Z Performance of Urinary Filtration, Intermittent, Less than 6 Hours Per Day (ICD-10-PCS; 2018-07-14)
PROC: 5A1D70Z Performance of Urinary Filtration, Intermittent, Less than 6 Hours Per Day (ICD-10-PCS; 2018-07-16)
PROC: 5A1D70Z Performance of Urinary Filtration, Intermittent, Less than 6 Hours Per Day (ICD-10-PCS; 2018-07-17)
DX: N39.0 Urinary tract infection, site not specified (principal); G92 Toxic encephalopathy; N18.6 End stage renal disease; R65.11 Systemic inflammatory response syndrome (SIRS) of non-infectious origin with acute organ dysfunction; T82.858A Stenosis of other vascular prosthetic devices, implants and grafts, initial encounter; I13.2 Hypertensive heart and chronic kidney disease with heart failure and with stage 5 chronic kidney disease, or end stage renal disease; I50.32 Chronic diastolic (congestive) heart failure; F03.91 Unspecified dementia, unspecified severity, with behavioral disturbance; R31.9 Hematuria, unspecified; G40.909 Epilepsy, unspecified, not intractable, without status epilepticus; E11.22 Type 2 diabetes mellitus with diabetic chronic kidney disease; M25.562 Pain in left knee; K05.5 Other periodontal diseases; M48.02 Spinal stenosis, cervical region; W01.0XXA Fall on same level from slipping, tripping and stumbling without subsequent striking against object, initial encounter; D63.1 Anemia in chronic kidney disease; R62.7 Adult failure to thrive; I95.9 Hypotension, unspecified; Z99.2 Dependence on renal dialysis; Z88.8 Allergy status to other drugs, medicaments and biological substances; Z79.899 Other long term (current) drug therapy; Z79.82 Long term (current) use of aspirin; Z94.89 Other transplanted organ and tissue status; Z90.89 Acquired absence of other organs; Y93.89 Activity, other specified; Y99.8 Other external cause status; Q27.39 Arteriovenous malformation, other site; Y92.098 Other place in other non-institutional residence as the place of occurrence of the external cause

== ENCOUNTER → 2018-07-22 | Day surgery (SDC) | payer OTHER ==
[2018-07-22 11:14] LABS: ABSOLUTE BASOPHILS 0.1 thou/uL (0.0-0.2); ABSOLUTE LYMPHOCYTES 1.7 thou/uL (0.8-5.3); ABSOLUTE MONOCYTES 0.8 thou/uL (0.0-1.2); ABSOLUTE NEUTROPHILS 8.4 thou/uL (1.6-8.1); BASOPHILS 1.2 %; EOSINOPHILS 0.3 %; HEMATOCRIT 35.1 % (42.0-52.0); HEMOGLOBIN 11.6 gm/dL (14.0-18.0); LYMPHOCYTES 15.3 %; MCH 33.9 pg (26.0-34.0); MCV 102.6 fL (80.0-100.0); MONOCYTES 7.5 %; MPV 7.5 fl. (7.2-11.1); NUCLEATED RBCS 0 /100WBC; PLATELET COUNT* 157 thou/uL (150-400); POLYS 75.7 %; RBC 3.42 mil/uL (4.50-6.00); RDW-CV 14.2 % (10.5-14.5)
[2018-07-22 11:26] LABS: CALCIUM 8.6 mg/dL (8.5-10.1); POTASSIUM 5.2 mmol/L (3.5-5.1)
[2018-07-22 11:29] LABS: TOTAL BILIRUBIN 1.1 mg/dL (<0.1-1.0); TOTAL PROTEIN 7.6 g/dL (6.4-8.2)
--- NOTE | 2018-07-23 15:34 | OP ---
[facility] [place] [address] OPERATIVE REPORT Name: VESTAABBY Room: [facility]#: [id number] Admission: 07/22/18 Attend Phys: Fei Dyer DO Discharge: Date of : 46 Report #: [id number] THIS REPORT FOR: //name// CC: Fei Thomas DATE OF SERVICE: 07/22/2018 PREOPERATIVE DIAGNOSIS: Poorly functioning left upper extremity arteriovenous fistula. POSTOPERATIVE DIAGNOSIS: Poorly functioning left upper extremity arteriovenous fistula. OPERATION: 1. Left upper extremity fistulogram. 2. Angioplasty of the venous outflow. SURGEON: Fei Dyer DO. DITCH RIDER: ANAID Milner. ANESTHESIA: Sedation local. ESTIMATED BLOOD LOSS: 25 mL. FLUIDS: Less than 100 crystalloid. URINE OUTPUT: None. SPECIMENS: None. IMPLANTS: None. COMPLICATIONS: None. FINDINGS: Initial fistulogram demonstrated patent left upper extremity fistula circuits, patent anastomosis with really mild stenosis. There are two pseudo aneurysmal areas in the main body of the fistula in the upper arm. The fistula took essentially two 90 degree turns and there was a moderate to moderately severe stenosis at the distal aspect of the transition into the axillary vein. Otherwise, there was no central venous stenosis. After balloon angioplasty, there was minimal residual stenosis and the fistula did have a good thrill and felt less pulsatile. CLINICAL HISTORY: The patient is a 67-year-old man who recently underwent open [facility] [place] [address] OPERATIVE REPORT Name: ABBY LEMONS Room: [facility]#: [id number] Admission: 07/22/18 Attend Phys: Fei Dyer DO Discharge: Date of : 46 Report #: [id number] revision of his left upper extremity fistula secondary to a bleeding ulcer, presents today for fistulogram. He has been having difficulty with completing his runs on dialysis and pulling back clots on dialysis as well. DESCRIPTION OF PROCEDURE: After informed consent was obtained, the patient was taken to the operating room and placed on the OR bed in supine position. He was administered sedation by the Anesthesia Team. Left upper extremity was prepped and draped in the usual sterile fashion. A full timeout was performed identifying correct patient and procedure. Next, the skin and subcutaneous tissues were anesthetized in the antecubital fossa overlying the fistula. The patient was accessed with a micropuncture needle. Using Seldinger technique, a microwire and microsheath were placed. I then performed the left upper extremity fistulogram with a reflux fistulogram and compression of the fistula with the findings noted above. I then exchanged out for a 6-Haitian sheath over a Bentson wire and then serially angioplastied the fistula from essentially the axillary vein to the mid portion with a 7 mm balloon and then subsequently an 8 mm balloon at the second 90 degree turn. Followup imaging demonstrated good result with really minimal residual stenosis, fistula felt less pulsatile. Satisfied with the result, the wire and the sheath were removed. Monocryl pursestring suture was placed. Manual pressure was held for 5 minutes. Once hemostasis was assured, sterile dressing was applied. All sponge, sharp and instrument counts were reported as correct x 2. He tolerated the procedure well and was transferred to recovery room in stable condition. Fistula may be used immediately for dialysis needs. If he continues to have issues with the fistula, he may need further revision. <ELECTRONICALLY SIGNED> By: Fei Dyer DO 07/23/18 1534 1311 [id number] Dyer DO /nt
== END | disposition home or self-care (01) ==
LOC: M.SUR 10:54
PROVIDERS: Surgery
DX: T82.858A Stenosis of other vascular prosthetic devices, implants and grafts, initial encounter (principal); N18.6 End stage renal disease; Z99.2 Dependence on renal dialysis; I50.9 Heart failure, unspecified; Z88.8 Allergy status to other drugs, medicaments and biological substances; Z79.82 Long term (current) use of aspirin; Z79.899 Other long term (current) drug therapy; Y83.8 Other surgical procedures as the cause of abnormal reaction of the patient, or of later complication, without mention of misadventure at the time of the procedure

== ENCOUNTER 2018-10-22 10:03 | Emergency (ER) | payer OTHER ==
[~2018-10-22] VITALS: Ht 188 cm; Wt 79.8 kg
[2018-10-22] MEDS ORDERED: DAILY VITE1 EACH PO (10:09)
[2018-10-22] MEDS ORDERED: NOVOLOG100 UNIT/1 SUBQ (10:10)
[2018-10-22 12:08] LABS: ABSOLUTE BASOPHILS 0.1 thou/uL (0.0-0.2); ABSOLUTE EOSINOPHILS 0.1 thou/uL (0.0-0.7); ABSOLUTE LYMPHOCYTES 1.4 thou/uL (0.8-5.3); ABSOLUTE MONOCYTES 0.5 thou/uL (0.0-1.2); ABSOLUTE NEUTROPHILS 5.5 thou/uL (1.6-8.1); BASOPHILS 1.1 %; EOSINOPHILS 1.2 %; HEMATOCRIT 32.9 % (42.0-52.0); LYMPHOCYTES 18.8 %; MCH 34.8 pg (26.0-34.0); MCHC 33.5 g/dL (28.0-37.0); MCV 103.7 fL (80.0-100.0); MONOCYTES 6.9 %; MPV 7.4 fl. (7.2-11.1); NUCLEATED RBCS 0 /100WBC; PLATELET COUNT* 115 thou/uL (150-400); RBC 3.17 mil/uL (4.50-6.00); RDW-CV 14.8 % (10.5-14.5); WBC 7.6 thou/uL (4.0-11.0)
[2018-10-22 12:32] LABS: ANION GAP 12 mmol/L (7-16); BUN 70 mg/dL (7-18); CALCIUM 9.1 mg/dL (8.5-10.1); CHLORIDE 102 mmol/L (98-107); CO2 24 mmol/L (21-32); CREATININE 8.4 mg/dL (0.6-1.3); GLUCOSE 135 mg/dL (70-99); POTASSIUM 5.4 mmol/L (3.5-5.1); SODIUM 138 mmol/L (136-145)
[2018-10-22 12:37] LABS: ALBUMIN 3.6 g/dL (3.4-5.0); ALKALINE PHOSPHATASE 79 U/L (46-116); LIPASE 132 U/L (73-393); NT-PRO BRAIN NAT PEPTIDE 22961 pg/mL (<300); SGOT 22 U/L (15-37); SGPT 14 U/L (30-65); TOTAL BILIRUBIN 0.6 mg/dL (<0.1-1.0); TOTAL PROTEIN 6.9 g/dL (6.4-8.2); TROPONIN-I LEVEL <0.06 ng/mL (<0.06)
[2018-10-22] MEDS ORDERED: NORCO 5-325 TA1 EAC1 PO (12:58)
[2018-10-22] MEDS ORDERED: ZOFRAN ODT4 MG PO (12:58)
[2018-10-22 13:08] VITALS: BP 150/79
--- NOTE | 2018-10-22 14:33 | EKG ---
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1950 Requested By: Dg Cooley Order Number: [id number] MD: Lul Combs Measurements Intervals Nursery Rate: 96 P: 78 SC: 199 QRS: -51 QRSD: 106 T: 46 QT: 372 QTc: 471 Interpretive Statements Sinus rhythm Probable left atrial enlargement Incomplete RBBB and LAFB Compared to ECG 04/30/2018 17:13:45 Left ventricular hypertrophy now present Ventricular premature complex(es) no longer present First degree AV block no longer present Electronically Signed On 10-22-2018 14:33:36 [employer] by Lul Combs [email or web address] <ELECTRONICALLY SIGNED> By: Lul Combs MD, FACC 10/22/18 1433 1152 1152 Lul Combs MD, [facility] /EPI
== END 2018-10-22 13:35 | disposition home or self-care (01) ==
LOC: M.ERS 10:03
PROVIDERS: Nurse Practitioner Family
DX: S22.41XA Multiple fractures of ribs, right side, initial encounter for closed fracture (principal); R11.2 Nausea with vomiting, unspecified; E11.22 Type 2 diabetes mellitus with diabetic chronic kidney disease; N18.6 End stage renal disease; I50.32 Chronic diastolic (congestive) heart failure; F03.90 Unspecified dementia, unspecified severity, without behavioral disturbance, psychotic disturbance, mood disturbance, and anxiety; Z88.1 Allergy status to other antibiotic agents; Z88.8 Allergy status to other drugs, medicaments and biological substances; Z79.4 Long term (current) use of insulin; Z99.2 Dependence on renal dialysis; Z90.49 Acquired absence of other specified parts of digestive tract; W01.0XXA Fall on same level from slipping, tripping and stumbling without subsequent striking against object, initial encounter; Y93.89 Activity, other specified; Y92.89 Other specified places as the place of occurrence of the external cause; Y99.8 Other external cause status

== ENCOUNTER 2019-08-07 10:36 | Emergency (ER) | payer OTHER ==
[~2019-08-07] VITALS: Ht 188 cm; Wt 72.0 kg
[~2019-08-07 10:36] MED LIST changes: +ACETAMINOPHEN-1 EAC1 PO; +DAILY VITE1 EACH PO; +MIDODRINE HCL10 MG PO; +NORCO 5-325 TA1 EAC1 PO; +ZOFRAN ODT4 MG PO
[2019-08-07] MEDS ORDERED: MELATONIN3 M1 PO (10:50)
[2019-08-07] MEDS ORDERED: ZOFRAN8 MG PO (10:51)
[2019-08-07] MEDS ORDERED: MIRALAX119 GM PO (10:51)
[2019-08-07] MEDS ORDERED: SENOKOT8.6 MG PO (10:51)
[2019-08-07] MEDS ORDERED: VITAMIN D31000 UNIT PO (10:51)
[2019-08-07 11:12] LABS: ABSOLUTE LYMPHOCYTES 1.2 thou/uL (0.8-5.3); ABSOLUTE MONOCYTES 0.7 thou/uL (0.0-1.2); ABSOLUTE NEUTROPHILS 5.1 thou/uL (1.6-8.1); BASOPHILS 0.5 %; EOSINOPHILS 0.6 %; LYMPHOCYTES 17.1 %; MCH 32.2 pg (26.0-34.0); MCHC 33.4 g/dL (28.0-37.0); MCV 96.2 fL (80.0-100.0); MONOCYTES 9.9 %; MPV 7.5 fl. (7.2-11.1); NUCLEATED RBCS 0 /100WBC; PLATELET COUNT* 142 thou/uL (150-400); POLYS 71.9 %; RBC 3.74 mil/uL (4.50-6.00); RDW-CV 18.1 % (10.5-14.5); WBC 7.1 thou/uL (4.0-11.0)
[2019-08-07 11:46] LABS: CALCIUM 9.9 mg/dL (8.5-10.1); CREATININE 2.5 mg/dL (0.6-1.3); POTASSIUM 3.5 mmol/L (3.5-5.1)
[2019-08-07 11:51] LABS: ALBUMIN 3.6 g/dL (3.4-5.0); TOTAL BILIRUBIN 0.8 mg/dL (<0.1-1.0); TOTAL PROTEIN 8.2 g/dL (6.4-8.2)
[2019-08-07 14:27] VITALS: BP 96/49
--- NOTE | 2019-08-08 14:22 | EKG ---
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 : 1950 Requested By: Reji Dorado Order Number: [id number] MD: David Cruz Measurements Intervals [place] Rate: 92 P: [place]: QRS: -63 QRSD: 106 T: 69 QT: 413 QTc: 511 Interpretive Statements Atrial flutter Incomplete RBBB and LAFB Prolonged QT interval Baseline wander in lead(s) V2 Compared to ECG 10/22/2018 11:52:02 Prolonged QT interval now present Sinus rhythm no longer present Electronically Signed On 08-08-2019 14:22:34 CDT by David Cruz [email or web address] <ELECTRONICALLY SIGNED> By: Shasha Cruz MD, FACC 08/08/19 1422 1044 1044 F. David Cruz MD, [facility] /EPI
== END 2019-08-07 14:20 | disposition short-term general hospital (02) ==
LOC: M.ERS 10:36
PROVIDERS: Family Medicine
DX: R55 Syncope and collapse (principal); R79.89 Other specified abnormal findings of blood chemistry; E11.22 Type 2 diabetes mellitus with diabetic chronic kidney disease; N18.6 End stage renal disease; I50.32 Chronic diastolic (congestive) heart failure; F03.90 Unspecified dementia, unspecified severity, without behavioral disturbance, psychotic disturbance, mood disturbance, and anxiety; Z99.2 Dependence on renal dialysis; Z88.8 Allergy status to other drugs, medicaments and biological substances; Z90.49 Acquired absence of other specified parts of digestive tract